=== PATIENT | female | born 1975 | race Two or more races ===

== ENCOUNTER 2017-04-06 09:44 | Day surgery (SDC) | payer BC ==
[~2017-04-06] VITALS: Ht 157.5 cm; Wt 85.7 kg
[2017-04-06 10:37] VITALS: Ht 157.5 cm; Wt 85.7 kg
[2017-04-06] MEDS ORDERED: PROPOFOL 40 ML ONE (10:44)
[2017-04-06 10:45] VITALS: BP 119/57; PULSE 79; RESP 17
[2017-04-06] MEDS ORDERED: FISH OIL (10:55)
[2017-04-06] MEDS ORDERED: VITAMINS (10:55)
[2017-04-06] MEDS ORDERED: LEVOTHYROXINE (10:55)
[2017-04-06 11:45] VITALS: BP 100/60; PULSE 67; RESP 15
--- NOTE | 2017-04-06 11:46 | GILP ---
DATE OF PROCEDURE: PROCEDURE: EGD and colonoscopy. INDICATION: A 42-year-old female undergoing this procedure for dysphagia and rectal bleeding. INFORMED CONSENT: The risk of the procedure, related and unrelated complications, anesthetic risks and alternatives discussed and informed consent was obtained. DESCRIPTION OF PROCEDURE: The patient was brought to the GI lab, sedated by the anesthesiologist. After optimal sedation, scope was passed with much ease into esophagus which was grossly within norm al limits; not dilated. Z line was regular; it was at 37 cm. Stomach mucosa revealed gastrit is. Biopsy was taken randomly to rule out H. pylori infection. Duodenum, first and second part inc luding ampulla was normal. Retroversion done, it was normal. No band was identified. Scope was st raightened out and removed with good patient tolerance. IMPRESSION 1. Normal esophagus. 2. Normal Z-line at 37 cm. 3. Gastritis. 4. No evidence of lap band. 5. Normal duodenum and ampulla. PLAN: Review histopathology. COLONOSCOPY REPORT: The patient was turned around, scope was passed with much ease into rectum, adv anced through sigmoid, descending, transverse colon all the way into cecum. Appendiceal orifice and IC valve identified. While coming out, mucosa thoroughly inspected, which was grossly normal. No diverticula or polyps seen. Retroversion done, no internal hemorrhoids identified. Scope was strai ghtened out, small hemorrhoids seen. IMPRESSION: 1. Hemorrhoids as a cause of rectal bleeding. 2. Negative all the way into the cecum. 3. Clarity was good. 4. Cleanliness was adequate. PLAN: Stay on high fiber diet and Sitz bath. Dictated By: ZEKE MERIDA/NTS Conf#: [id number] DID#: [id number] CC: ZEKE KOEHLER MD;*EndCC*
== END 2017-04-06 16:37 | disposition home or self-care (01) ==
LOC: GIL 09:44
PROVIDERS: ATTEND Internal Medicine Gastroenterology
DX: K29.30 Chronic superficial gastritis without bleeding (principal); K64.9 Unspecified hemorrhoids; E66.9 Obesity, unspecified; Z68.34 Body mass index [BMI] 34.0-34.9, adult; E03.9 Hypothyroidism, unspecified
CPT/HCPCS: 43239; 45378; 84702; 88305; 88312; Z7610